=== PATIENT | female | born 1940 | race Caucasian/White ===

== ENCOUNTER 2019-06-02 12:18 | Emergency (ER) | payer MEDICARE ==
[~2019-06-02] VITALS: Ht 154.9 cm; Wt 59.0 kg
[2019-06-02 12:41] LABS: BILIRUBIN NEGATIVE (NEGATIVE); BLOOD NEGATIVE (NEGATIVE); CLARITY CLEAR (CLEAR); COLOR YELLOW (YELLOW); GLUCOSE NEGATIVE (NEGATIVE); KETONE NEGATIVE (NEGATIVE); LEUKO ESTERASE TRACE (NEGATIVE); NITRITE NEGATIVE (NEGATIVE); SPECIFIC GRAVITY <= 1.005 (1.005-1.030); UROBILINOGEN 0.2 E.U./dl (0.2-1.0)
[2019-06-02 12:48] LABS: HEMATOCRIT 53.7 % (37.0-47.0); HEMOGLOBIN 14.9 g/dl (12.0-16.0); MEAN CELL VOLUME 69.7 fl (81.0-99.0); MEAN CORPUSCULAR HGB 19.4 pg (27.0-31.0); MEAN CORPUSCULAR HGB CONC 27.7 g/dl (33.0-37.0); NUCLEATED RED BLOOD CELL 1.1 10*3/uL (0.0-0.0); NUCLEATED RED BLOOD CELL 2.2 % (0.0-0.0); PLATELET COUNT AUTOMATED 60 10*3/uL (130-400); RED CELL DISTRI WIDTH 24.3 % (0-14.5)
[2019-06-02 12:55] LABS: ACT PARTIAL THROMBO TIME 39.5 SECONDS (20.0-32.1); INTERNATIONAL NORM RATIO 1.1 (2.0-3.5)
[2019-06-02 13:01] LABS: ALBUMIN 3.8 gm/dl (3.1-4.5); ALKALINE PHOSPHATASE 241 U/L (45-117); BUN 20 mg/dl (7-24); CHLORIDE 105 mmol/L (98-107); CREATININE 1.17 mg/dL (0.55-1.02); LIPASE 195 U/L (73-393); POTASSIUM 4.1 mmol/L (3.5-5.1); SGOT/AST 44 IU/L (3-35); SGPT/ALT 32 U/L (12-78); SODIUM 138 mmol/L (136-145); TOTAL PROTEIN 7.3 gm/dL (6.4-8.2)
[2019-06-02 13:07] LABS: TROPONIN I < 0.015 ng/ml (<0.045)
[2019-06-02 13:32] LABS: ATYPICAL LYMPHS 1 % (0-0); BASOPHILS 2 % (0-1); PLATELET SUFFICIENCY LOW (NORMAL); POLYCHROMASIA SLIGHT; TOTAL CELLS COUNTED 100 #CELLS
[2019-06-02 13:33] LABS: MICROCYTOSIS MODERATE; OVALOCYTES FEW
[2019-06-02 13:37] LABS: BLASTS 1 % (0-0); WHITE BLOOD COUNT 50.7 10*3/uL (4.8-10.8)
[2019-06-02 13:39] LABS: BACTERIA 1+
[2019-06-02] MEDS ORDERED: PREDNISONE20 M1 PO (15:17)
[2019-06-02] MEDS ORDERED: DOXYCYCLINE100 M3 PO (15:17)
[2019-06-02] MEDS ORDERED: TESSALON PERLE100 MG PO (15:17)
[2019-06-02] MEDS ORDERED: PROVENTIL HFA6.7 GM INH (15:17)
== END 2019-06-02 15:30 | disposition home or self-care (01) ==
LOC: ED 12:18
PROVIDERS: Nurse Practitioner Family
DX: J20.9 Acute bronchitis, unspecified (principal); E03.9 Hypothyroidism, unspecified